=== PATIENT | male | born 1975 | race Hispanic/Latino ===

== ENCOUNTER 2019-07-05 11:35 | Emergency (ER) | payer OTHER ==
[~2019-07-05] VITALS: Ht 175.3 cm; Wt 131.1 kg
[2019-07-05 11:52] VITALS: BP 158/98
[2019-07-05] MEDS ORDERED: TETANUS/DIPHTHERIA TOX ADULT 0.5 ML SYR ONE (12:10)
[2019-07-05] MEDS ORDERED: TETANUS/DIPHTHERIA TOX ADULT 0.5 ML SYR IM ONE (12:15)
[2019-07-05] MEDS ORDERED: LIDOCAINE HCL 1% LOCAL INJ 20 ML VIAL INJ ONE (12:15)
== END 2019-07-05 12:15 | disposition home or self-care (01) ==
LOC: ER 11:35
DX: L02.413 Cutaneous abscess of right upper limb (principal); R51 Headache; S40.861A Insect bite (nonvenomous) of right upper arm, initial encounter; I10 Essential (primary) hypertension
CPT/HCPCS: 10061; 90471; 90714; 99282; J2001

== ENCOUNTER 2019-11-01 08:05 | Observation (INO) | payer OTHER ==
[~2019-11-01] VITALS: Ht 175.3 cm; Wt 129.4 kg
[2019-11-01] MEDS ORDERED: SODIUM CHLORIDE 0.9% 1000ML 1,000 ML IV STA (08:34)
[2019-11-01] MEDS ORDERED: HYDROCODONE/CHLORPHENIRAMINE 5 ML LIQCR PO ONE (08:45)
[2019-11-01] MEDS: CEFTRIAXONE SOD 1 GM/NS 50 ML 50 ML IV SCH (09:00)
[2019-11-01 09:24] LABS: HEMATOCRIT 49.5 % (38.2-49.6); HEMOGLOBIN 16.6 g/dL (14.0-18.0); LYMPHOCYTES # (AUTO) 1.4 (1.0-3.2); LYMPHOCYTES % 27.1 % (18.0-39.1); MEAN CORPUSCULAR HEMOGLOBIN 31.1 pg (28-32); MEAN CORPUSCULAR HGB CONC 33.5 g/dL (31-35); MEAN CORPUSCULAR VOLUME 92.7 fL (81-99); MONOCYTES # (AUTO) 0.5 (0.2-0.8); MONOCYTES % 9.2 % (4.4-11.3); NEUTROPHILS # (AUTO) 3.3 (2.1-6.9); NEUTROPHILS % 63.3 % (38.7-80.0); PLATELET COUNT 162 x10e3/uL (140-360); RED BLOOD COUNT 5.34 x10e6/uL (4.3-5.7)
[2019-11-01 09:38] LABS: INR 0.88; PARTIAL THROMBOPLASTIN TIME 27.8 seconds (23.8-35.5); PROTHROMBIN TIME 12.4 seconds (11.9-14.5)
[2019-11-01 09:47] LABS: ALANINE AMINOTRANSFERASE 39 IU/L (0-55); ALBUMIN 3.4 g/dL (3.5-5.0); ALBUMIN/GLOBULIN RATIO 0.8 (0.8-2.0); ALKALINE PHOSPHATASE 53 IU/L (40-150); ANION GAP 12.8 mmol/L (8-16); BLOOD UREA NITROGEN 12 mg/dL (7-26); BUN/CREATININE RATIO 14 (6-25); CALCIUM 8.5 mg/dL (8.4-10.2); CARBON DIOXIDE 25 mmol/L (22-29); CHLORIDE 102 mmol/L (98-107); CREATINE KINASE 186 IU/L (30-200); CREATININE, SERUM 0.87 mg/dL (0.72-1.25); EST GLOMERULAR FILTRATION RATE > 60 ML/MIN (60-); GLUCOSE 101 mg/dL (74-118); POTASSIUM 3.8 mmol/L (3.5-5.1); SODIUM 136 mmol/L (136-145)
--- NOTE | 2019-11-01 09:50 | NUR ---
Vinay Vaz ph:[phone]
--- NOTE | 2019-11-01 09:54 | Diagnostic Imaging Report ---
EXAMINATION: CHEST SINGLE (PORTABLE) INDICATION: Shortness of breath, pneumonia COMPARISON: None FINDINGS: LINES/TUBES:EKG leads overlie the chest. LUNGS:The lungs are moderately inflated. Bilateral predominantly peripheral patchy airspace opacities. PLEURA:No pleural effusion or pneumothorax. MEDIASTINUM:The cardiomediastinal silhouette appears normal in size and shape. Atherosclerotic calcifications of the thoracic aorta. BONES/SOFT TISSUES:No acute osseous injury. ABDOMEN:No free air under the diaphragm. IMPRESSION: Bilateral predominantly peripheral patchy airspace opacities consistent with multifocal viral pneumonia. Signed by: Rai Del Valle MD on 11/01/2019 9:50 AM
[2019-11-01] MEDS: AZITHROMYCIN 500MG/NS 250 ML 250 ML IV SCH (10:30)
--- NOTE | 2019-11-01 10:43 | Emergency Department Note ---
History of Present Illnes History of Present Illness Chief Complaint: COVID PUI History of Present Illness This is a 44 year old male 44 y/o presents to ED with c/o sob, pt reports he has had covid x 5 days and feels like he is getting worse. Cough, F/C, body aches, then SOB Historian: Patient Arrival Mode: [employer] Required: No Onset (how long ago): day(s) (5) Radiation: Reports non-radiation Severity: moderate Onset quality: gradual Timing of current episode: constant Progression: worsening Chronicity: new Context: Denies recent illness Relieving factors: none Exacerbating factors: none Associated symptoms: Reports cough, Reports fever/chills, Reports shortness of breath; Denies chest pain Treatments prior to arrival: none Past Medical/Family History Physician Review I have reviewed the patient's past medical and family history. Any updates have been documented here. Past Medical History Recent Fever: Yes Clinical Suspicion of Infectio: Yes New/Unexplained Change in Ment: No Past Medical History: None Other Surgery: arthroscopic knee Social History Smoking Cessation: Never Smoker Counseling Performed: No Alcohol Use: Social Any Illegal Drug Use: No TB Exposure/Symptoms: No Physically hurt or threatened: No Other Last Tetanus: unknown Any Pre-Existing Lines (PICC,: No Is patient up to date on immun: Yes Last Flu: unknown Last Pneumovax: unknown Review of Systems Review of Systems Constitutional: Reports as per HPI EENTM: Reports no symptoms Cardiovascular: Reports no symptoms Respiratory: Reports as per HPI Gastrointestinal: Reports no symptoms Genitourinary: Reports no symptoms Musculoskeletal: Reports no symptoms Integumentary: Reports no symptoms Neurological: Reports no symptoms Psychological: Reports no symptoms Endocrine: Reports no symptoms Hematological/Lymphatic: Reports no symptoms Physical Exam Related Data Allergies: Coded Allergies: No Known Allergies (Unverified , 07/05/19) Triage Vital Signs Vital Signs Date Time Temp Pulse Resp B/P (MAP) Pulse Ox O2 Delivery O2 Flow Rate FiO2 11/01/19 08:25 98.5 94 22 112/74 96 Vital signs reviewed: Yes Physical Exam CONSTITUTIONAL Constitutional: Present well-developed, Present well-nourished HENT HENT: Present normocephalic, Present atraumatic, Present oropharynx clear/moist, Present nose normal HENT L/R: Present left ext ear normal, Present right ext ear normal EYES Eyes: Reports PERRL, Reports conjunctivae normal NECK Neck: Present ROM normal PULMONARY Pulmonary: Present effort normal, Present breath sounds normal CARDIOVASCULAR Cardiovascular: Present regular rhythm, Present heart sounds normal, Present capillary refill normal, Present normal rate GASTROINTESTINAL Abdominal: Present soft, Present nontender, Present bowel sounds normal GENITOURINARY Genitourinary: Present exam deferred SKIN Skin: Present warm, Present dry MUSCULOSKELETAL Musculoskeletal: Present ROM normal NEUROLOGICAL Neurological: Present alert, Present oriented x 3, Present no gross motor or sensory deficits PSYCHOLOGICAL Psychological: Present mood/affect normal, Present judgement normal Results Laboratory Result Diagram: 11/01/19 0900 11/01/19 0900 Laboratory Laboratory Tests Test 11/01/19 09:00 White Blood Count 5.24 x10e3/uL (4.8-10.8) Red Blood Count 5.34 x10e6/uL (4.3-5.7) Hemoglobin 16.6 g/dL (14.0-18.0) Hematocrit 49.5 % (38.2-49.6) Mean Corpuscular Volume 92.7 fL (81-99) Mean Corpuscular Hemoglobin 31.1 pg (28-32) Mean Corpuscular Hemoglobin Concent 33.5 g/dL (31-35) Red Cell Distribution Width 13.0 % (11.7-14.4) Platelet Count 162 x10e3/uL (140-360) Neutrophils (%) (Auto) 63.3 % (38.7-80.0) Lymphocytes (%) (Auto) 27.1 % (18.0-39.1) Monocytes (%) (Auto) 9.2 % (4.4-11.3) Eosinophils (%) (Auto) 0.0 % (0.0-6.0) Basophils (%) (Auto) 0.0 % (0.0-1.0) Neutrophils # (Auto) 3.3 (2.1-6.9) Lymphocytes # (Auto) 1.4 (1.0-3.2) Monocytes # (Auto) 0.5 (0.2-0.8) Eosinophils # (Auto) 0.0 (0.0-0.4) Basophils # (Auto) 0.0 (0.0-0.1) Absolute Immature Granulocyte (auto 0.02 x10e3/uL (0-0.1) Prothrombin Time 12.4 seconds (11.9-14.5) Prothromb Time International Ratio 0.88 Activated Partial Thromboplast Time 27.8 seconds (23.8-35.5) Sodium Level 136 mmol/L (136-145) Potassium Level 3.8 mmol/L (3.5-5.1) Chloride Level 102 mmol/L (98-107) Carbon Dioxide Level 25 mmol/L (22-29) Anion Gap 12.8 mmol/L (8-16) Blood Urea Nitrogen 12 mg/dL (7-26) Creatinine 0.87 mg/dL (0.72-1.25) Estimat Glomerular Filtration Rate > 60 ML/MIN (60-) BUN/Creatinine Ratio 14 (6-25) Glucose Level 101 mg/dL (74-118) Calcium Level 8.5 mg/dL (8.4-10.2) Total Bilirubin 0.7 mg/dL (0.2-1.2) Aspartate Amino Transf (AST/SGOT) 35 IU/L (5-34) Alanine Aminotransferase (ALT/SGPT) 39 IU/L (0-55) Alkaline Phosphatase 53 IU/L (40-150) Creatine Kinase 186 IU/L (30-200) Creatine Kinase MB 0.70 ng/mL (0-5.0) Troponin I 0.011 ng/mL (0-0.300) B-Type Natriuretic Peptide < 10.0 pg/mL (0-100) Total Protein 7.8 g/dL (6.5-8.1) Albumin 3.4 g/dL (3.5-5.0) Globulin 4.4 g/dL (2.3-3.5) Albumin/Globulin Ratio 0.8 (0.8-2.0) Lab results reviewed: Yes Imaging Imaging results reviewed: Yes Impressions Procedure: [id number] DX/CHEST SINGLE (PORTABLE) Exam Date: 11/01/19 Exam Time: 0936 REPORT STATUS: Signed EXAMINATION: CHEST SINGLE (PORTABLE) INDICATION: Shortness of breath, pneumonia COMPARISON: None FINDINGS: LINES/TUBES:EKG leads overlie the chest. LUNGS:The lungs are moderately inflated. Bilateral predominantly peripheral patchy airspace opacities. PLEURA:No pleural effusion or pneumothorax. MEDIASTINUM:The cardiomediastinal silhouette appears normal in size and shape. Atherosclerotic calcifications of the thoracic aorta. BONES/SOFT TISSUES:No acute osseous injury. ABDOMEN:No free air under the diaphragm. IMPRESSION: Bilateral predominantly peripheral patchy airspace opacities consistent with multifocal viral pneumonia. Signed by: Rai Del Valle MD on 11/01/2019 9:50 AM Assessment & Plan Medical Decision Making MDM check cbc, chem's, cardiacs, cxr, bnp, COVID swab - r/o COVID19, leukocytosis, NSTEMI, pneumonia, CHF. I walked the pt in place, and pt dropped O2 sat to 90% on RA and tachypneic ~44 Reassessment Reassessment Admit to Dr Hernandez, Jane Huff Assessment & Plan Final Impression: (1) Pneumonia due to COVID-19 virus Depart Disposition: ADMITTED Last Vital Signs Date Time Temp Pulse Resp B/P (MAP) Pulse Ox O2 Delivery O2 Flow Rate FiO2 11/01/19 09:32 87 12 105/80 100 11/01/19 08:25 98.5 Medications in the ED Sodium Chloride 1,000 ml @ 0 mls/hr Q0M STAT IV Last administered on 11/01/19at 09:00; Admin Dose 999 MLS/HR; Start 11/01/19 at 08:34; Stop 11/01/19 at 08:56; Status DC Ceftriaxone Sodium 50 ml @ 100 mls/hr Q24H IV Last administered on 11/01/19at 09:00; Admin Dose 100 MLS/HR; Start 11/01/19 at 09:00; Stop 11/08/19 at 08:59 Azithromycin 250 ml @ 200 mls/hr DAILY IV ; Start 11/01/19 at 09:30; Stop 11/08/19 at 09:29 Hydrocodone Bitartrate 5 ml NOW ONCE PO Last administered on 11/01/19at 09:00; Admin Dose 5 ML; Start 11/01/19 at 08:45; Stop 11/01/19 at 08:56; Status DC EVE BATRES MD Nov 01, 2019 10:43
[2019-11-01] MEDS ORDERED: ONDANSETRON HCL INJ 2MG/ML 2ML 2 MG/ML VIAL IV PRN (12:00)
[2019-11-01] MEDS ORDERED: ALBUTEROL SULFATE HFA 8GM INHALATION AEROSOL INH PRN (12:00)
[2019-11-01] MEDS: FAMOTIDINE 20 MG/2 ML VIAL IV SCH ×2 (12:45→21:07)
[2019-11-01] MEDS ORDERED: ZOLPIDEM TARTRATE 5 MG TAB PO PRN (17:45)
--- NOTE | 2019-11-01 18:28 | NUR ---
Nursing report given to Becki CASAS, pt will transfer to [facility] with Telemetry.
--- NOTE | 2019-11-01 18:51 | NUR ---
Received pt from ER at this time. Pt is aox3 and able to verbalize needs. Denies any pain at this time. Pt is on 3L/NC and breaths are even and unlabored. 20g to right AC is patent.
[2019-11-01 19:37] LABS: CREATINE KINASE 144 IU/L (30-200)
[2019-11-01 20:00] VITALS: BP 115/79
[2019-11-01 20:15] VITALS: BP 115/79
--- NOTE | 2019-11-01 20:15 | NUR ---
PATIENT RECEIVED. PATIENT IS RESTING IN BED, AAOX3. RESP EVEN AND UNLABORED. NO C/O SOB OR DISTRESS NOTED. ORIENTED TO ROOM. TELE IN PLACE. CALL LIGHT WITHIN REACH. INSTRUCT TO CALL FOR ASSISTANCE. BED LOW/LOCKED. SIDE RAIL UP X2. CONTINUE TO MONITOR CLOSELY
--- NOTE | 2019-11-01 20:30 | History and Physical ---
History And Physical And Consultation REASON FOR ADMISSION: The patient has COVID-19 pneumonia. HISTORY OF PRESENT ILLNESS: This is a 44-year-old male, comes in with fever and chills, getting progressively worse over the last 5 days. The patient came to the emergency room. In the emergency room, he was evaluated. PAST MEDICAL HISTORY: Denies. PAST SURGICAL HISTORY: Denies. ALLERGIES: NKDA. SOCIAL HISTORY: No smoking, drug abuse, or alcohol abuse. LABORATORY DATA: White count 5.24 and hemoglobin 16. Sodium 130, potassium 3.8, and creatinine of 0.87. Albumin 4.4. His COVID is still pending here. He had a chest x-ray, which shows bilateral airspace infiltrates. PHYSICAL EXAMINATION: GENERAL: He is currently alert and oriented, does not seem acute. VITAL SIGNS: Stable. Afebrile. The patient is breathing 22 a minute, blood pressure 112/74, and O2 saturation 96%. HEENT: He is not icteric. NECK: Supple. CHEST: Few crackles bilaterally. COR: S1, S2. ABDOMEN: Soft. IMPRESSION: The patient presents with COVID-19, concerned about superimposed bacterial pneumonia. PLAN: We will give the patient Rocephin 1 g daily, 500 mg daily. We will agree with albuterol. If he became hypoxemic, we will start him on steroid. We will reassess again. MD DESTINEY Hammond/BOUBACAR /[id number]
[2019-11-01 20:51] VITALS: BP 115/79
[2019-11-01] MEDS: ENOXAPARIN SOD INJ 40 MG/0.4 ML SYR SC SCH (21:07)
[2019-11-01] MEDS: ACETAMINOPHEN 325 MG TAB PO PRN (21:08)
--- NOTE | 2019-11-01 22:15 | Consultation ---
DATE OF CONSULTATION: Pulmonary Critical Care Consultation CHIEF COMPLAINT: Dyspnea and cough with COVID-19. HISTORY OF PRESENT ILLNESS: The patient is a 44-year-old man. He reports fevers and cough for the past week. He has noted some mild dyspnea. He went to a freestanding ER several days ago and tested positive for COVID. He does not complain of any chest pain. He has no nausea or vomiting. PAST MEDICAL HISTORY: 1. No prior asthma or COPD. 2. No prior cardiac disease. 3. No prior diabetes. PAST SURGICAL HISTORY: Status post arthroscopic surgery of the right knee. SOCIAL HISTORY: The patient is not a smoker. He is not a drinker. FAMILY HISTORY: Family history is noncontributory. ALLERGIES: THERE ARE NO KNOWN DRUG ALLERGIES. REVIEW OF SYSTEMS: The patient does have some fevers. He has no headache. He has some cough and dyspnea. He has no chest pain. He is not having any abdominal pain. He has no nausea or vomiting. He denies any leg edema. PHYSICAL EXAMINATION: VITAL SIGNS: The patient is afebrile. The blood pressure is 130/84. Saturations 98%. HEENT: Shows no facial swelling or erythema. CARDIAC: Reveals regular rate and rhythm with normal S1 and S2. LUNGS: Auscultation of lungs reveals rhonchorous breath sounds bilaterally. There is no wheezing. ABDOMEN: Soft and nontender. There is no rebound or guarding. EXTREMITIES: Shows no leg edema or calf tenderness. There is no cyanosis or clubbing. SKIN: Shows no rashes. NEUROLOGICAL: Shows no focal abnormalities. LABORATORY DATA: White blood cell count is 5.2 and the hemoglobin is 16.6. The platelet count is 162. The BUN to creatinine ratio is 12 to 0.87. Other electrolytes are within normal limits. RADIOGRAPHIC DATA: Chest x-ray shows bilateral infiltrates. IMPRESSION: Viral pneumonia and COVID-19 infection. PLAN: 1. Rocephin and Zithromax. 2. Lovenox. 3. Decadron. 4. Inhaler as needed. 5. Oxygen as needed. MD ANANYA Alvarenga/BOUBACAR /[id number]
--- NOTE | 2019-11-01 23:55 | History and Physical ---
REASON FOR ADMISSION: The patient came in with shortness of breath. HISTORY PRESENT ILLNESS: A 44-year-old male with a history of COVID positive for the last 5 days. He was in his usual state of health until he started feeling increasing amount of shortness of breath, body aches, and cough. The patient came in and was admitted to the hospital for COVID pneumonia. PAST MEDICAL HISTORY: Noncontributory. PAST SURGICAL HISTORY: Arthroscopy of the knee. SOCIAL HISTORY: No EtOH. No IV drug abuse. No history of smoking either. No illegal drugs. Positive for history of exposure to COVID-19. REVIEW OF SYSTEMS: Negative for chest pain. Positive for shortness of breath. Positive for myalgias. Positive for joint pains and positive for fever. No nausea, vomiting, or diarrhea. No constipation. No rectal bleeding. No hematochezia. No hematemesis. No diplopia. No blurry vision. No focal neurological changes. ALLERGIES: NO CURRENT ALLERGIES. PHYSICAL EXAMINATION: VITAL SIGNS: Temperature is 98.5, pulse of 94, respirations of 22, and blood pressure is 112/74 with a pulse oximetry of 96%. HEENT: Normocephalic and atraumatic. Pupils are reactive. CVS: S1 and S2 normal. Regular rate and rhythm. ABDOMEN: Nontender and nondistended. EXTREMITIES: No clubbing, no cyanosis, no edema. LUNGS: Positive for minimal rhonchi. Effort is normal and otherwise lungs are within normal limits. PSYCHOLOGIC: Normal. LABORATORY VALUES: White count of 5.24, hemoglobin 16.4, hematocrit 49.5, BUN of 12, creatinine 0.87, neutrophil count is 3.3, lymphocyte count 1.4, monocyte of 0.5. AST and ALT within normal limits too. Chest x-ray shows bilateral predominantly peripheral patchy airspace opacities consistent with multifocal pneumonia. ASSESSMENT: Mr. Vaz with coronavirus disease pneumonia. PLAN: The patient has been started on sodium chloride. Continue hydrating the patient. Rocephin has been started. Azithromycin has been started and hydrocortisone has been started too. We will continue to monitor the patient. Further recommendation per clinical course. A consult with ID and Pulmonology has been done too. MD SHYAM Welsh/MODL /[id number]
[2019-11-02] VITALS: BP 126/77
[2019-11-02 02:35] LABS: CREATINE KINASE 131 IU/L (30-200)
[2019-11-02 04:00] VITALS: BP 130/82
[2019-11-02 05:10] LABS: BASOPHILS % 0.3 % (0.0-1.0); EOSINOPHILS # (AUTO) 0.2 (0.0-0.4); EOSINOPHILS % 2.9 % (0.0-6.0); HEMATOCRIT 47.6 % (38.2-49.6); HEMOGLOBIN 15.4 g/dL (14.0-18.0); LYMPHOCYTES # (AUTO) 1.8 (1.0-3.2); MEAN CORPUSCULAR HEMOGLOBIN 30.7 pg (28-32); MEAN CORPUSCULAR HGB CONC 32.4 g/dL (31-35); MONOCYTES # (AUTO) 0.6 (0.2-0.8); MONOCYTES % 8.2 % (4.4-11.3); NEUTROPHILS # (AUTO) 4.4 (2.1-6.9); PLATELET COUNT 160 x10e3/uL (140-360); RED BLOOD COUNT 5.01 x10e6/uL (4.3-5.7); RED CELL DISTRIBUTION WIDTH 13.3 % (11.7-14.4)
[2019-11-02] MEDS: ACETAMINOPHEN 325 MG TAB PO PRN (05:10)
[2019-11-02 05:21] LABS: ALANINE AMINOTRANSFERASE 34 IU/L (0-55); ALBUMIN/GLOBULIN RATIO 0.7 (0.8-2.0); ALKALINE PHOSPHATASE 48 IU/L (40-150); ANION GAP 14.1 mmol/L (8-16); BLOOD UREA NITROGEN 10 mg/dL (7-26); BUN/CREATININE RATIO 13 (6-25); CALCIUM 8.2 mg/dL (8.4-10.2); CARBON DIOXIDE 23 mmol/L (22-29); CHLORIDE 102 mmol/L (98-107); CHOL/HDL RATIO 6.1 (3.9-4.7); CHOLESTEROL 109 MD/DL (0-199); CREATININE, SERUM 0.79 mg/dL (0.72-1.25); EST GLOMERULAR FILTRATION RATE > 60 ML/MIN (60-); GLUCOSE 87 mg/dL (74-118); HDL CHOLESTEROL 18 MG/DL (40-60); LDL CHOLESTEROL 71 MG/DL (60-130); POTASSIUM 4.1 mmol/L (3.5-5.1); SODIUM 135 mmol/L (136-145); TRIGLYCERIDES 100 MG/DL (0-149)
[2019-11-02] MEDS ORDERED: SODIUM CHLORIDE 0.9% 1000ML 1,000 ML SCH (07:15)
--- NOTE | 2019-11-02 07:47 | Progress Note ---
DATE: SUBJECTIVE: A 44-year-old gentleman who came in with COVID-19 positive with viral pneumonia. Currently, the patient is on azithromycin, Rocephin and Decadron. Fluids have been stopped. We will restart the fluids. No chest pain. Positive shortness of breath, is on O2 of 2 L, saturating about 98% on 2 L. The patient also has low-grade fever throughout the night. OBJECTIVE: VITAL SIGNS: Temperature is 100.9, T-max 100.9, pulse of 100, respirations of 18, blood pressure is 130/82, pulse oximetry of 96% on 2 L. HEENT: Normocephalic, atraumatic. Pupils reactive to light and accommodation. CVS: S1 and S2, tachy. ABDOMEN: Soft, nontender. LUNGS: Positive for rhonchi bilaterally. EXTREMITIES: No clubbing, no cyanosis, no edema. LABORATORY VALUES: White count has been normal. H and H normal. Chemistry; sodium 135, potassium 4.1, BUN of 10, creatinine of 0.79, LDL 71, HDL 18. SEROLOGY: Coronavirus detected. MICROBIOLOGY: Blood culture pending. ASSESSMENT: Mr. Darrell Vaz with: 1. Coronavirus disease - 19 pneumonia. PLAN: Continue on Rocephin, Zithromax and Lovenox is on board. Decadron is on board. We will give him some fluid resuscitation at 70 mL an hour. Continue to monitor the patient. We will keep him in-house. The patient with ongoing fever. MD SHYAM Welsh/BOUBACAR /[id number]
[2019-11-02 08:15] VITALS: BP 135/80
[2019-11-02] MEDS ORDERED: DEXAMETHASONE SOD PHOS 10 MG/1 ML VIAL IV SCH (09:00)
[2019-11-02] MEDS: FAMOTIDINE 20 MG/2 ML VIAL IV SCH (09:01)
[2019-11-02] MEDS: AZITHROMYCIN 500MG/NS 250 ML 250 ML IV SCH (09:01)
[2019-11-02] MEDS: ENOXAPARIN SOD INJ 40 MG/0.4 ML SYR SC SCH (09:01)
[2019-11-02] MEDS: CEFTRIAXONE SOD 1 GM/NS 50 ML 50 ML IV SCH (09:01)
[2019-11-02 12:39] VITALS: BP 126/79
[2019-11-02 12:44] LABS: CREATINE KINASE 146 IU/L (30-200)
--- NOTE | 2019-11-02 15:04 | NUR ---
Home O2 eval was done. Pt desat to 87% on exertion. CM called pt and obtained choice for [facility]. Signed choice letter placed in chart. Referral faxed to [facility] at [phone]. Ant sapp [facility] was notified of referral.
--- NOTE | 2019-11-02 15:15 | Progress Note ---
DATE: SUBJECTIVE: The patient is seen evaluated. Available labs and notes reviewed. Discussed with Dr. Lara. REVIEW OF SYSTEMS: Improved shortness of breath. No nausea, vomiting, fever, chills, chest pain, headache, rash, headache resolved. The patient has no complaints currently. OBJECTIVE: VITAL SIGNS: Temperature max of 100.9 this morning at 4 o'clock, pulse is 95, respirations 16, blood pressure 126/79. GENERAL: Alert and oriented, off O2. The patient gets 2 L of oxygen at times. Currently, no acute distress. CV: S1, S2. CHEST: Equal expansion. Decreased breath sounds. No acute distress. ABDOMEN: Obese, soft, nontender. HEENT: Moist. No pallor. No JVD. MEDICATIONS: Medication list reviewed. From ID point of view, the patient is on dexamethasone Zithromax, Rocephin. LABORATORY STUDIES: White count of 6.99, platelet 160. Creatinine 0.79. MICROBIOLOGY: Blood culture negative 24 hours. RADIOLOGY STUDIES: Chest x-ray from yesterday showed bilateral predominantly peripheral patchy airspace opacities consistent with multifocal viral pneumonia. ASSESSMENT AND PLAN: 1. Coronavirus disease positive on admission. Concern superimposed bacterial infection. 2. Obesity. 3. Continue with Rocephin, Zithromax, Lovenox, dexamethasone. Currently monitor patient clinically. Follow with the labs. Please refer to chart for more information. Dictated by Sascha Salmeron PA-C (Al) Keon Lara MD /MODL /[id number]
[2019-11-02 17:04] VITALS: BP 120/75
[2019-11-02] MEDS ORDERED: ONDANSETRON HCL 4 MG ORAL DISINTEGRATING TAB PO PRN (17:15)
[2019-11-02] MEDS ORDERED: DECADRON6 MG PO (17:31)
[2019-11-02] MEDS ORDERED: AZITHROMYCIN250 MG PO (17:32)
--- NOTE | 2019-11-02 17:35 | Progress Note ---
DATE: SUBJECTIVE: The patient feels better. He is not having dyspnea. He has no fever right now. He has minimal cough. PHYSICAL EXAMINATION: VITAL SIGNS: The patient is afebrile. The blood pressure is 126/79 and saturation is 97% on 2 L. HEENT: Shows no facial swelling or erythema. CARDIAC: Reveals regular rate and rhythm with normal S1 and S2. LUNGS: Auscultation of lungs reveals clear breath sounds bilaterally. There is no wheezing. ABDOMEN: Soft and nontender. There is no rebound or guarding. EXTREMITIES: Shows no leg edema or calf tenderness. There is no cyanosis or clubbing. SKIN: Shows no rashes. IMPRESSION: 1. COVID-19 and viral pneumonia. 2. Mild dyspnea. PLAN: 1. Discharged home. 2. Zithromax as outpatient. 3. Home O2 evaluation. 4. Rescue inhaler as needed. 5. Followup with ID in 1 to 2 weeks. 6. Self-quarantine at home. Tello Lopez MD [facility]/BOUBACAR /[id number]
--- NOTE | 2019-11-02 18:00 | NUR ---
Pt discharged home at this time. Pt was discharged with oxygen. 0 s/s of acute distress noted at time of discharge. Pt was discharged with two prescriptions. Pt verbalized understanding of all discahrge instructions and follow up appointments.
== END 2019-11-02 18:11 | disposition home or self-care (01) ==
LOC: ER 08:46 → ERHOLD 11:56 → IMCU 18:46
PROVIDERS: ADMIT Family Medicine; ATTEND Family Medicine
DX: U07.1 COVID-19 (principal); J12.89 Other viral pneumonia; J15.9 Unspecified bacterial pneumonia; E66.9 Obesity, unspecified; Z68.41 Body mass index [BMI] 40.0-44.9, adult
CPT/HCPCS: 36415; 71045; 80053 ×2; 80061; 82550 ×2; 82553 ×2; 83880; 84484 ×2; 85025 ×2; 85610; 85730; 87040; 87635; G0378 ×2; J0456 ×2; J0696 ×2; J1100; J1650 ×2; J7030 ×2